=== PATIENT | female | born 1955 | race Caucasian/White ===

== ENCOUNTER 2022-03-11 19:51 | Emergency (ER) | payer MEDICARE, MEDICAID ==
[~2022-03-11] VITALS: Ht 167.6 cm; Wt 73.0 kg
[2022-03-12] MEDS ORDERED: HYDROCODONE/ACETAMINOPHEN 5/325MG TABLET PO ONE ×2 (01:15→08:00)
[2022-03-12 08:28] VITALS: BP 124/53
== END 2022-03-12 06:49 | disposition short-term general hospital (02) ==
LOC: ER 19:51
DX: M25.551 Pain in right hip (principal); D64.9 Anemia, unspecified; F31.9 Bipolar disorder, unspecified; I10 Essential (primary) hypertension; F20.9 Schizophrenia, unspecified
CPT/HCPCS: 73502; 73552; 99285